=== PATIENT | male | born 1960 | race Caucasian/White ===

== ENCOUNTER 2020-11-05 08:39 | Inpatient (IN) | payer OTHER ==
[~2020-11-05] VITALS: Ht 177.8 cm; Wt 96.2 kg
[2020-11-05 09:08] LABS: HEMOGLOBIN 13.5 gm/dl (14.0-17.5); RED BLOOD COUNT 5.17 M/UL (4.20-5.50); WHITE BLOOD COUNT 8.8 K/UL (4.5-11.0)
[2020-11-05 09:38] LABS: BUN/CREATININE RATIO 16 (0-10)
[2020-11-05] MEDS ORDERED: DALIRESP 500500 MCG PO (12:57)
[2020-11-05] MEDS ORDERED: MONTELUKAST SOD10 MG PO (12:58)
[2020-11-05] MEDS ORDERED: BUSPIRONE HCL15 MG PO (12:59)
[2020-11-05] MEDS ORDERED: SPIRIVA18 MCG INH (12:59)
[2020-11-05] MEDS ORDERED: CLARITIN 10MG T10 MG PO (13:00)
[2020-11-05] MEDS ORDERED: HYDROCHLOROTH12.5 M1 PO (13:00)
[2020-11-05] MEDS ORDERED: GLUCOPHAGE XR500 M1 PO (13:00)
[2020-11-05] MEDS ORDERED: SERTRALINE HCL100 MG PO (13:01)
[2020-11-05] MEDS ORDERED: VENTOLIN HFA 66.7 GM INH (13:02)
[2020-11-05] MEDS ORDERED: BREO ELLIPTA 21 EACH INH (13:02)
[2020-11-05] MEDS ORDERED: FLONASE 0.05% N16 GM (13:03)
[2020-11-06 02:35] LABS: HEMOGLOBIN 12.4 gm/dl (14.0-17.5); RED BLOOD COUNT 4.76 M/UL (4.20-5.50); WHITE BLOOD COUNT 5.5 K/UL (4.5-11.0)
[2020-11-06 03:25] LABS: BUN/CREATININE RATIO 24 (0-10)
[2020-11-07 03:12] LABS: HEMOGLOBIN 11.9 gm/dl (14.0-17.5); RED BLOOD COUNT 4.59 M/UL (4.20-5.50)
[2020-11-07 03:14] LABS: WHITE BLOOD COUNT 12.7 K/UL (4.5-11.0)
[2020-11-07 03:34] LABS: BUN/CREATININE RATIO 33 (0-10)
[2020-11-08 03:24] LABS: HEMOGLOBIN 12.4 gm/dl (14.0-17.5); RED BLOOD COUNT 4.78 M/UL (4.20-5.50); WHITE BLOOD COUNT 11.1 K/UL (4.5-11.0)
[2020-11-08 03:52] LABS: BUN/CREATININE RATIO 39 (0-10)
[2020-11-08 14:12] LABS: ORGANISM ID Not indicated. (.); SPECIMEN SOURCE Urine (.); STREPTOCOCCUS PNEUMONIAE AG Negative (Negative)
[2020-11-09 05:03] LABS: HEMOGLOBIN 12.3 gm/dl (14.0-17.5); RED BLOOD COUNT 4.76 M/UL (4.20-5.50); WHITE BLOOD COUNT 8.9 K/UL (4.5-11.0)
[2020-11-09 05:39] LABS: BUN/CREATININE RATIO 41 (0-10)
[2020-11-10 02:30] LABS: HEMOGLOBIN 12.4 gm/dl (14.0-17.5); RED BLOOD COUNT 4.76 M/UL (4.20-5.50); WHITE BLOOD COUNT 9.4 K/UL (4.5-11.0)
[2020-11-10 02:54] LABS: BUN/CREATININE RATIO 41 (0-10)
[2020-11-11 02:50] LABS: HEMOGLOBIN 12.4 gm/dl (14.0-17.5); RED BLOOD COUNT 4.97 M/UL (4.20-5.50); WHITE BLOOD COUNT 7.6 K/UL (4.5-11.0)
[2020-11-11 03:09] LABS: BUN/CREATININE RATIO 40 (0-10)
[2020-11-11] MEDS ORDERED: ENTRESTO 24 MG1 EACH PO (10:55)
[2020-11-11] MEDS ORDERED: MEDROL DOSEPAK 24 MG PO (10:55)
[2020-11-11] MEDS ORDERED: FUROSEMIDE40 MG PO (10:55)
[2020-11-11] MEDS ORDERED: ATORVASTATIN CA20 MG PO (10:55)
[2020-11-11] MEDS ORDERED: CARVEDILOL3.125 MG PO (10:55)
[2020-11-11] MEDS ORDERED: ASPIRIN81 MG PO (10:55)
[2020-11-11] MEDS ORDERED: KLOR-CON M1010 MEQ PO (11:00)
--- NOTE | 2020-11-11 15:39 | NUR ---
REPORT CALLED TO HUE SEBASTIAN WITH [facility].
== END 2020-11-11 20:00 | disposition home health service (06) | DRG 291 ==
LOC: ER1 08:39 → PROG CARE 10:14 → CDU 10:14 → PROG CARE 13:21
PROVIDERS: Family Medicine; Internal Medicine Pulmonary Disease; Physician Assistant; Physician Assistant Medical; ADMIT Internal Medicine
DX: I11.0 Hypertensive heart disease with heart failure (principal); J18.9 Pneumonia, unspecified organism; J81.0 Acute pulmonary edema; J96.01 Acute respiratory failure with hypoxia; J44.0 Chronic obstructive pulmonary disease with (acute) lower respiratory infection; J44.1 Chronic obstructive pulmonary disease with (acute) exacerbation; J98.19 Other pulmonary collapse; I50.41 Acute combined systolic (congestive) and diastolic (congestive) heart failure; I27.20 Pulmonary hypertension, unspecified; I34.0 Nonrheumatic mitral (valve) insufficiency; I42.9 Cardiomyopathy, unspecified; R00.0 Tachycardia, unspecified; E11.9 Type 2 diabetes mellitus without complications; D64.9 Anemia, unspecified; R74.01 Elevation of levels of liver transaminase levels; J30.2 Other seasonal allergic rhinitis; Z87.891 Personal history of nicotine dependence; Z79.82 Long term (current) use of aspirin; Z79.84 Long term (current) use of oral hypoglycemic drugs; Z80.1 Family history of malignant neoplasm of trachea, bronchus and lung; Z79.899 Other long term (current) drug therapy; Z80.8 Family history of malignant neoplasm of other organs or systems; Z99.81 Dependence on supplemental oxygen
CPT/HCPCS: ECHO; 0240U; 36415; 36600; 71045; 71250; 80053; 82550; 82553; 82803; 82962; 83605; 83735; 83874; 83880; 84100; 84484; 85025; 85027; 86140; 87040; 87070; 87081; 87086; 87205; 87278; 87899; 93005; 93306; 94640; 94660; 94664; 94760; 96365; 96366; 96375; 99285; C9113; J0456; J0696; J1100; J1650; J1940; J2920; J2930; J7030